=== PATIENT | male | born 1960 | race Caucasian/White ===

== ENCOUNTER 2025-09-01 12:29 | Outpatient (CLI) | payer BC | END 2025-09-01 12:30 | disposition home or self-care (01) | LOC: RAD 12:29 | PROVIDERS: ATTEND Student in an Organized Health Care Education/Training Program | DX: I25.10 Atherosclerotic heart disease of native coronary artery without angina pectoris (principal); J93.9 Pneumothorax, unspecified | CPT/HCPCS: 71046 ==